=== PATIENT | male | born 1995 | race Caucasian/White ===

== ENCOUNTER 2016-04-23 18:51 | Emergency (ER) | payer MEDICAID ==
[2016-04-23] MEDS ORDERED: ACETAMINOPHEN 325 MG TAB As Ordered ONE (19:23)
[2016-04-23] MEDS ORDERED: predniSONE 20 MG TAB As Ordered ONE (19:23)
[2016-04-23] MEDS ORDERED: ALBUTEROL SULFATE 2.5 MG/0.5 ML INH NEB SOLN As Ordered ONE (19:25)
--- NOTE | 2016-04-23 20:00 | EDDOCDS ---
Nurse's Notes [facility] Name: Marco Schmitt Age: 20 yrs Sex: Male : 1995 Arrival Date: 04/23/2016 Time: 18:51 Bed PR2 / 26 Private MD: NO PRIMARY PHYSICIAN, . Diagnosis: Acute upper respiratory infections of multiple and unspecified sites;Bronchitis, not specified as acute or chronic Presentation: 04/23 18:56 Presenting complaint: Patient states: "beyond sick," runny nose, eyes hurt, lack of af2 appetite, coughing up "green stuff.". Adult Sepsis Screening: The patient does not have new or worsening altered mentation. Patient's respiratory rate is less than 22. Systolic blood pressure is greater than 100. Patient has a qSOFA score of 0- Negative Sepsis Screen. Suicide/Homicide risk assessment- the patient denies having any suicidal and/or homicidal ideations and does not present with any other emotional, behavioral or mental health complaints. 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 Transition of care: patient was not received from another setting of care. 18:56 Acuity: SAMARA Level 4 af2 18:56 Method Of Arrival: Walkin/Carried/Asstd af2 Triage Assessment: 18:58 General: Appears in no apparent distress, Behavior is cooperative. Pain: Location: af2 right eye, left eye and nose Pain currently is 8 out of 10 on a pain scale. Pt Declines HIV testing. Neurological: Level of Consciousness is awake, alert. Respiratory: Airway is patent Respiratory effort is even, unlabored, Reports cough that is productive, pain with cough since sunday. Derm: Skin is normal. Historical: - Allergies: No known drug Allergies; - Home Meds: 1. none - PMHx: none; - PSHx: none; - Social history: Smoking status: Patient uses tobacco products, current every day smoker. No barriers to communication noted, The patient speaks fluent Portuguese. - Family history: No immediate family members are acutely ill. - : The pt / caregiver states he / she is not on anticoagulants. Home medication list is obtained from the patient. - Exposure Risk Screening:: None identified. Screenin:56 Screening information is obtained from the patient. Fall risk: No risks identified. mb9 Assistance ADL's: requires no assistance with activities of daily living. Abuse/DV Screen: The patient / caregiver reports he/she is: not in a situation that causes fear, pain or injury. Nutritional screening: No deficits noted. Advance Directives: There is no active DNR order. home support is adequate. Assessment: 19:27 General: Appears unkempt, Behavior is appropriate for age, cooperative. Respiratory: mb9 Airway is patent Respiratory effort is even, unlabored, Breath sounds are diminished bilaterally. 19:56 Respiratory: Airway is patent Respiratory effort is even, unlabored. mb9 Vital Signs: 18:53 BP 137 / 71; Pulse 111; Resp 18 S; Temp 97.0(O); Pulse Ox 98% on R/A; Weight 72.57 kg gr2 (R); Height 5 ft. 9 in. (175.26 cm) (R); Pain 7/10; 18:53 Body Mass Index 23.63 (72.57 kg, 175.26 cm) gr2 Vitals: 18:53 Log In Time: April 23, 2016 at 18:53. gr2 ED Course: 18:53 Patient visited by Lorelei Burgess. gr2 18:53 NO PRIMARY PHYSICIAN, . is Private Physician. gr2 18:53 Patient moved to Waiting gr2 18:55 Patient visited by Lorelei Burgess. gr2 18:55 Patient moved to Pre RCE gr2 18:57 Triage Initiated af2 18:59 Patient visited by Alysha Baldwin RN. af2 18:59 Patient moved to Triage 2 af2 19:12 [facility] God[facility] cc10 19:12 Alphonse Burch DO is Attending Physician. cc10 19:15 Patient visited by Royal Godfrey PA-C. cc10 19:15 Patient visited by Royal Godfrey PA-C. cc10 19:21 Patient moved to PR2 / 26 mb9 19:44 [facility] is Referral Physician. cc10 19:56 The patient / caregiver is instructed regarding the plan of care and ED course. mb9 19:56 No IV's were initiated during this patient's visit. No procedures done that require mb9 assistance. 19:59 [facility] Payment Agreement was scanned into [email or web address] and attached to record. gjb Administered Medications: 19:26 Drug: predniSONE 40 mg [prednisone 20 mg tablet (2 tabs)] Route: PO; mb9 19:26 Drug: Acetaminophen 650 mg [acetaminophen 325 mg tablet (2 tabs)] Route: PO; mb9 19:27 Drug: Albuterol 2.5 mg [albuterol sulfate 2.5 mg/0.5 mL solution for nebulization (0.5 jc3 mL)] Route: Nebulizer; RT: 19:27 Initial Med Neb Given as ordered. Respiratory: Breath sounds are diminished. jc3 Order Results: There are currently no results for this order. Outcome: 19:44 Discharge ordered by Provider. cc10 19:56 Discharge Assessment: Patient awake, alert and oriented x 3. No cognitive and/or mb9 functional deficits noted. Patient verbalized understanding of disposition instructions. patient administered narcotics - no. The following High Risk Discharge criteria are identified: None. Discharged to home ambulatory. Condition: good Condition: stable Condition: improved. Discharge instructions given to patient, Instructed on discharge instructions, follow up and referral plans. medication usage, Demonstrated understanding of instructions, medications, Pt was receptive of discharge instructions/ teaching. Prescriptions given X 3. No special radiology studies were completed. Property :Personal belongings accompany Pt. 19:59 Patient left the ED. mb9 Signatures: Juan Jose Gonzalez jc3 Lorelei Burgess gr2 Royal Godfrey PA-C PA-C cc10 Celso Whitaker,RN RN mb9 Alysha Baldwin RN RN af2 Sharmila Eller MTDD
--- NOTE | 2016-04-23 20:00 | EDDOCDS ---
Physician Documentation [facility] Name: Marco Schmitt Age: 20 yrs Sex: Male : 1995 Arrival Date: 04/23/2016 Time: 18:51 Bed PR Private MD: NO PRIMARY PHYSICIAN, . Disposition: 04/23/16 19:44 Discharged to Home/Self Care. Impression: Acute upper respiratory infections of multiple and unspecified sites, Bronchitis, not specified as acute or chronic. - Condition is Stable. - Discharge Instructions: Acute Bronchitis, Upper Respiratory Infection, Adult. - Prescriptions for Prednisone 20 mg Oral Tablet - take 1 tablet by ORAL route once daily for 3 days; 3 tablet. Fluticasone 50 mcg/actuation Nasal [place], Suspension - inhale 1 spray by INTRANASAL route 2 times per day; 1 bottle. Albuterol Sulfate 90 mcg/actuation Inhalation HFA Aerosol Inhaler - inhale 2 puff by INHALATION route every 4 hours As needed; 1 Inhaler. - Medication Reconciliation, Local Pharmacy Hours, Work Release Form - 2 day form. - Follow up: Emergency Department; When: As needed; Reason: Worsening of conditions. [facility]: [facility]; When: Call to arrange an appointment; Reason: Wound/Symptom Recheck, Recheck today's complaints, Worsening of conditions, Continuance of care. - Problem is an ongoing problem. - Symptoms are unchanged. Historical: - Allergies: No known drug Allergies; - Home Meds: 1. none - PMHx: none; - PSHx: none; - Social history: Smoking status: Patient uses tobacco products, current every day smoker. No barriers to communication noted, The patient speaks fluent Irish. - Family history: No immediate family members are acutely ill. - : The pt / caregiver states he / she is not on anticoagulants. Home medication list is obtained from the patient. - Exposure Risk Screening:: None identified. Vital Signs: 04/23 18:53 BP 137 / 71; Pulse 111; Resp 18 S; Temp 97.0(O); Pulse Ox 98% on R/A; Weight 72.57 kg / gr2 159.99 lbs (R); Height 5 ft. 9 in. (175.26 cm) (R); Pain 7/10; 18:53 Body Mass Index 23.63 (72.57 kg, 175.26 cm) gr2 MDM: 19:20 Albuterol 2.5 mg Nebulizer once ordered. cc10 19:20 Call Respiratory ordered. cc10 19:20 predniSONE 40 mg PO once; administer with food or milk ordered. cc10 19:20 Acetaminophen Tablet 650 mg PO once ordered. cc10 19:23 Call Respiratory complete. ajs 19:49 Financial registration complete. gjb 19:59 [facility] Payment Agreement was scanned into [employer] and attached to record. gjb Administered Medications: 19:26 Drug: predniSONE 40 mg [prednisone 20 mg tablet (2 tabs)] Route: PO; mb9 19:26 Drug: Acetaminophen 650 mg [acetaminophen 325 mg tablet (2 tabs)] Route: PO; mb9 19:27 Drug: Albuterol 2.5 mg [albuterol sulfate 2.5 mg/0.5 mL solution for nebulization (0.5 jc3 mL)] Route: Nebulizer; Signatures: Keila Pabon Colin, PA-C PA-C cc10 Celso Whitaker RN RN mb9 Alysha Baldwin RN RN af2 Sharmila Eller gjb Juan Jose Gonzalez jc3 The chart was reviewed and I authenticate all verbal orders and agree with the evaluation and treatment provided.Attachments: 19:59 [facility] Payment Agreement gj MTDD
--- NOTE | 2016-04-25 21:00 | EDDOCDS ---
Physician Documentation [facility] Name: Marco Schmitt Age: 20 yrs Sex: Male : 1995 Arrival Date: 04/23/2016 Time: 18:51 Bed PR Private MD: NO PRIMARY PHYSICIAN, . Disposition: 04/23/16 19:44 Discharged to Home/Self Care. Impression: Acute upper respiratory infections of multiple and unspecified sites, Bronchitis, not specified as acute or chronic. - Condition is Stable. - Discharge Instructions: Acute Bronchitis, Upper Respiratory Infection, Adult. - Prescriptions for Prednisone 20 mg Oral Tablet - take 1 tablet by ORAL route once daily for 3 days; 3 tablet. Fluticasone 50 mcg/actuation Nasal [place], Suspension - inhale 1 spray by INTRANASAL route 2 times per day; 1 bottle. Albuterol Sulfate 90 mcg/actuation Inhalation HFA Aerosol Inhaler - inhale 2 puff by INHALATION route every 4 hours As needed; 1 Inhaler. - Medication Reconciliation, Local Pharmacy Hours, Work Release Form - 2 day form. - Follow up: Emergency Department; When: As needed; Reason: Worsening of conditions. Follow [facility]: [facility]; When: Call to arrange an appointment; Reason: Wound/Symptom Recheck, Recheck today's complaints, Worsening of conditions, Continuance of care. - Problem is an ongoing problem. - Symptoms are unchanged. Historical: - Allergies: No known drug Allergies; - Home Meds: 1. none - PMHx: none; - PSHx: none; - Social history: Smoking status: Patient uses tobacco products, current every day smoker. No barriers to communication noted, The patient speaks fluent Irish. - Family history: No immediate family members are acutely ill. - : The pt / caregiver states he / she is not on anticoagulants. Home medication list is obtained from the patient. - Exposure Risk Screening:: None identified. Vital Signs: 04/23 18:53 BP 137 / 71; Pulse 111; Resp 18 S; Temp 97.0(O); Pulse Ox 98% on R/A; Weight 72.57 kg / gr2 159.99 lbs (R); Height 5 ft. 9 in. (175.26 cm) (R); Pain 7/10; 18:53 Body Mass Index 23.63 (72.57 kg, 175.26 cm) gr2 MDM: 19:20 Albuterol 2.5 mg Nebulizer once ordered. cc10 19:20 Call Respiratory ordered. cc10 19:20 predniSONE 40 mg PO once; administer with food or milk ordered. cc10 19:20 Acetaminophen Tablet 650 mg PO once ordered. cc10 19:23 Call Respiratory complete. ajs 19:49 Financial registration complete. [facility] :[facility] Payment Agreement was scanned into [employer] and attached to record. [facility] 04/24 10:46 T-Sheet-- Draft Copy was scanned into [employer] and attached to record. gb Administered Medications: 04/23 19:26 Drug: predniSONE 40 mg [prednisone 20 mg tablet (2 tabs)] Route: PO; mb9 19:26 Drug: Acetaminophen 650 mg [acetaminophen 325 mg tablet (2 tabs)] Route: PO; mb9 19:27 Drug: Albuterol 2.5 mg [albuterol sulfate 2.5 mg/0.5 mL solution for nebulization (0.5 jc3 mL)] Route: Nebulizer; Signatures: Fatoumata Sosa, Reg Reg gb Slate, KeilaRoyal Hilton, PA-C PA-C cc10 Celso Whitaker RN RN mb9 Alysha Baldwin RN RN af2 Sharmila Eller gjb Juan Jose Gonzalez jc3 The chart was reviewed and I authenticate all verbal orders and agree with the evaluation and treatment provided.Attachments: :[facility] Payment Agreement [facility] 04/24 10:46 T-Sheet-- Draft Copy gb Chart Complete MTDD
--- NOTE | 2016-04-25 21:00 | EDDOCDS ---
Physician Documentation [facility] Name: Marco Schmitt Age: 20 yrs Sex: Male : 1995 Arrival Date: 04/23/2016 Time: 18:51 Bed PR Private MD: NO PRIMARY PHYSICIAN, . Disposition: 04/23/16 19:44 Discharged to Home/Self Care. Impression: Acute upper respiratory infections of multiple and unspecified sites, Bronchitis, not specified as acute or chronic. - Condition is Stable. - Discharge Instructions: Acute Bronchitis, Upper Respiratory Infection, Adult. - Prescriptions for Prednisone 20 mg Oral Tablet - take 1 tablet by ORAL route once daily for 3 days; 3 tablet. Fluticasone 50 mcg/actuation Nasal [place], Suspension - inhale 1 spray by INTRANASAL route 2 times per day; 1 bottle. Albuterol Sulfate 90 mcg/actuation Inhalation HFA Aerosol Inhaler - inhale 2 puff by INHALATION route every 4 hours As needed; 1 Inhaler. - Medication Reconciliation, Local Pharmacy Hours, Work Release Form - 2 day form. - Follow up: Emergency Department; When: As needed; Reason: Worsening of conditions. Follow [facility]: [facility]; When: Call to arrange an appointment; Reason: Wound/Symptom Recheck, Recheck today's complaints, Worsening of conditions, Continuance of care. - Problem is an ongoing problem. - Symptoms are unchanged. Historical: - Allergies: No known drug Allergies; - Home Meds: 1. none - PMHx: none; - PSHx: none; - Social history: Smoking status: Patient uses tobacco products, current every day smoker. No barriers to communication noted, The patient speaks fluent Kinyarwanda. - Family history: No immediate family members are acutely ill. - : The pt / caregiver states he / she is not on anticoagulants. Home medication list is obtained from the patient. - Exposure Risk Screening:: None identified. Vital Signs: 04/23 18:53 BP 137 / 71; Pulse 111; Resp 18 S; Temp 97.0(O); Pulse Ox 98% on R/A; Weight 72.57 kg / gr2 159.99 lbs (R); Height 5 ft. 9 in. (175.26 cm) (R); Pain 7/10; 18:53 Body Mass Index 23.63 (72.57 kg, 175.26 cm) gr2 MDM: 19:20 Albuterol 2.5 mg Nebulizer once ordered. cc10 19:20 Call Respiratory ordered. cc10 19:20 predniSONE 40 mg PO once; administer with food or milk ordered. cc10 19:20 Acetaminophen Tablet 650 mg PO once ordered. cc10 19:23 Call Respiratory complete. ajs 19:49 Financial registration complete. banner :59 [facility] Payment Agreement was scanned into [employer] and attached to record. banner 04/24 10:46 T-Sheet-- Draft Copy was scanned into [employer] and attached to record. gb Administered Medications: 04/23 19:26 Drug: predniSONE 40 mg [prednisone 20 mg tablet (2 tabs)] Route: PO; mb9 19:26 Drug: Acetaminophen 650 mg [acetaminophen 325 mg tablet (2 tabs)] Route: PO; mb9 19:27 Drug: Albuterol 2.5 mg [albuterol sulfate 2.5 mg/0.5 mL solution for nebulization (0.5 jc3 mL)] Route: Nebulizer; Signatures: Fatoumata Sosa, Reg Reg gb Slate, KeilaRoyal Hilton, PA-C PA-C cc10 Celso Whitaker RN RN mb9 Alysha Baldwin RN RN af2 Sharmila Eller gjb Juan Jose Gonzalez jc3 The chart was reviewed and I authenticate all verbal orders and agree with the evaluation and treatment provided.Attachments: :59 [facility] Payment Agreement banner 04/24 10:46 T-Sheet-- Draft Copy gb Chart Complete MTDD
--- NOTE | 2016-04-25 21:00 | EDDOCDS ---
Nurse's Notes [facility] Name: Marco Schmitt Age: 20 yrs Sex: Male : 1995 Arrival Date: 04/23/2016 Time: 18:51 Bed PR2 / 26 Private MD: NO PRIMARY PHYSICIAN, . Diagnosis: Acute upper respiratory infections of multiple and unspecified sites;Bronchitis, not specified as acute or chronic Presentation: 04/23 18:56 Presenting complaint: Patient states: "beyond sick," runny nose, eyes hurt, lack of af2 appetite, coughing up "green stuff.". Adult Sepsis Screening: The patient does not have new or worsening altered mentation. Patient's respiratory rate is less than 22. Systolic blood pressure is greater than 100. Patient has a qSOFA score of 0- Negative Sepsis Screen. Suicide/Homicide risk assessment- the patient denies having any suicidal and/or homicidal ideations and does not present with any other emotional, behavioral or mental health complaints. Status: Patient is not a rn patient services or dependent. Transition of care: patient was not received from another setting of care. 18:56 Acuity: SAMARA Level 4 af2 18:56 Method Of Arrival: Walkin/Carried/Asstd af2 Triage Assessment: 18:58 General: Appears in no apparent distress, Behavior is cooperative. Pain: Location: af2 right eye, left eye and nose Pain currently is 8 out of 10 on a pain scale. Pt Declines HIV testing. Neurological: Level of Consciousness is awake, alert. Respiratory: Airway is patent Respiratory effort is even, unlabored, Reports cough that is productive, pain with cough since sunday. Derm: Skin is normal. Historical: - Allergies: No known drug Allergies; - Home Meds: 1. none - PMHx: none; - PSHx: none; - Social history: Smoking status: Patient uses tobacco products, current every day smoker. No barriers to communication noted, The patient speaks fluent Bulgarian. - Family history: No immediate family members are acutely ill. - : The pt / caregiver states he / she is not on anticoagulants. Home medication list is obtained from the patient. - Exposure Risk Screening:: None identified. Screenin:56 Screening information is obtained from the patient. Fall risk: No risks identified. mb9 Assistance ADL's: requires no assistance with activities of daily living. Abuse/DV Screen: The patient / caregiver reports he/she is: not in a situation that causes fear, pain or injury. Nutritional screening: No deficits noted. Advance Directives: There is no active DNR order. home support is adequate. Assessment: 19:27 General: Appears unkempt, Behavior is appropriate for age, cooperative. Respiratory: mb9 Airway is patent Respiratory effort is even, unlabored, Breath sounds are diminished bilaterally. 19:56 Respiratory: Airway is patent Respiratory effort is even, unlabored. mb9 Vital Signs: 18:53 BP 137 / 71; Pulse 111; Resp 18 S; Temp 97.0(O); Pulse Ox 98% on R/A; Weight 72.57 kg gr2 (R); Height 5 ft. 9 in. (175.26 cm) (R); Pain 7/10; 18:53 Body Mass Index 23.63 (72.57 kg, 175.26 cm) gr2 Vitals: 18:53 Log In Time: April 23, 2016 at 18:53. gr2 ED Course: 18:53 Patient visited by Lorelei Burgess. gr2 18:53 NO PRIMARY PHYSICIAN, . is Private Physician. gr2 18:53 Patient moved to Waiting gr2 18:55 Patient visited by Lorelei Burgess. gr2 18:55 Patient moved to Pre RCE gr2 18:57 Triage Initiated af2 18:59 Patient visited by Alysha Baldwin RN. af2 18:59 Patient moved to Triage 2 af2 19:12 [facility] God[facility] cc[facility] 19:12 Alphonse Burch DO is Attending Physician. cc10 19:15 Patient visited by Royal Godfrey PA-C. cc10 19:15 Patient visited by Royal Godfrey PA-C. cc10 19:21 Patient moved to PR2 / mb9 19:44 [facility] is Referral Physician. cc10 19:56 The patient / caregiver is instructed regarding the plan of care and ED course. mb9 19:56 No IV's were initiated during this patient's visit. No procedures done that require mb9 assistance. 19:59 [facility] Payment Agreement was scanned into [employer] and attached to record. yoselin 01/09 10:46 T-Sheet-- Draft Copy was scanned into [employer] and attached to record. gb Administered Medications: 04/23 19:26 Drug: predniSONE 40 mg [prednisone 20 mg tablet (2 tabs)] Route: PO; mb9 19:26 Drug: Acetaminophen 650 mg [acetaminophen 325 mg tablet (2 tabs)] Route: PO; mb9 19:27 Drug: Albuterol 2.5 mg [albuterol sulfate 2.5 mg/0.5 mL solution for nebulization (0.5 jc3 mL)] Route: Nebulizer; RT: 19:27 Initial Med Neb Given as ordered. Respiratory: Breath sounds are diminished. jc3 Order Results: There are currently no results for this order. Outcome: 19:44 Discharge ordered by Provider. cc10 19:56 Discharge Assessment: Patient awake, alert and oriented x 3. No cognitive and/or mb9 functional deficits noted. Patient verbalized understanding of disposition instructions. patient administered narcotics - no. The following High Risk Discharge criteria are identified: None. Discharged to home ambulatory. Condition: good Condition: stable Condition: improved. Discharge instructions given to patient, Instructed on discharge instructions, follow up and referral plans. medication usage, Demonstrated understanding of instructions, medications, Pt was receptive of discharge instructions/ teaching. Prescriptions given X 3. No special radiology studies were completed. Property :Personal belongings accompany Pt. 19:59 Patient left the ED. mb9 Signatures: Fatoumata Sosa, Reg Reg Juan Jose Gonzalez jc3 Lorelei Burgess gr2 Royal Godfrey PA-C PA-C cc10 Celso Whitaker RN RN mb9 Alysha Baldwin RN RN af2 Sharmila Eller Chart Complete MTDD
== END 2016-04-23 19:59 | disposition home or self-care (01) ==
LOC: M ED 18:51
DX: J20.9 Acute bronchitis, unspecified (principal); J01.90 Acute sinusitis, unspecified; F17.210 Nicotine dependence, cigarettes, uncomplicated

== ENCOUNTER 2016-09-22 08:23 | Emergency (ER) | payer MEDICAID, SELFPAY ==
[~2016-09-22] VITALS: Ht 182.9 cm; Wt 72.6 kg
[2016-09-22 10:24] VITALS: BP 124/72
== END 2016-09-22 10:24 | disposition home or self-care (01) ==
LOC: M ED 09:34
DX: L84 Corns and callosities (principal); F17.200 Nicotine dependence, unspecified, uncomplicated